=== PATIENT | female | born 1970 | race African-American/Black ===

== ENCOUNTER 2017-02-08 16:52 | Emergency (ER) | payer BC, OTHER ==
[~2017-02-08] VITALS: Ht 160 cm; Wt 76.2 kg
[~2017-02-08 16:52] MED LIST: CYCL-36 PO; ERGO50000 PO; GABA300C3 PO; MOBI15TA PO
[2017-02-08 17:15] VITALS: BP 163/75; PULSE 95; RESP 16; TEMP 98; O2SAT 100
[2017-02-08] MEDS ORDERED: ASPIRIN 81 MG CHEW TAB PO ONE (17:15)
[2017-02-08] MEDS ORDERED: GABA300C5 PO (17:15)
[2017-02-08] MEDS ORDERED: MORPHINE SULFATE 4 MG/ML INJ IV PUSH ONE (17:15)
--- NOTE | 2017-02-08 17:20 | PD ---
HPI Chief Complaint: cp Time Seen by Provider: 17:03 Travel History International Travel<30 days: No Contact w/Intl Traveler<30days: No Traveled to known affect area: No History of Present Illness HPI c/o intermittent episodes started 6days ago of left sided chest pressure, 6/10, described as sharp, nonrad, worse with movement....pt has also noted over last month an increase sob with activity such as going up stairs. denies fever/v/d/ abd pain/gardiner PFSH Past Medical History Heart Rhythm Problems: No Cardiac Catheterization: No Cardiovascular Problems: No High Cholesterol: No Congestive Heart Failure: No Diabetes: Yes (ON DIET 9 YEARS AGO) Diminished Hearing: No Musculoskeletal: Yes (LOWER BACK HURTS) Immunizations Current: Yes : 5 Para: 5 Miscarriage: 0 : 0 Past Surgical History Tonsillectomy: Yes Social History Alcohol Use: No Tobacco Use: No Substance Use: No Allergies-Medications (Allergen,Severity, Reaction): Coded Allergies: acetaminophen (Unverified Allergy, Severe, Hives, 02/08/17) propoxyphene (Unverified Allergy, Severe, Hives, 02/08/17) Reported Meds & Prescriptions Reported Meds & Active Scripts Active Reported Gabapentin 300 Mg Cap 300 Mg PO BID PRN Review of Systems Except as stated in HPI: all other systems reviewed are Neg Cardiovascular: Positive: Chest Pain or Discomfort Physical Exam Narrative GENERAL: SKIN: Warm and dry. HEAD: Atraumatic. Normocephalic. EYES: Pupils equal and round. No scleral icterus. No injection or drainage. ENT: No nasal bleeding or discharge. Mucous membranes pink and moist. NECK: Trachea midline. No JVD. CARDIOVASCULAR: Regular rate and rhythm. RESPIRATORY: No accessory muscle use. Clear to auscultation. Breath sounds equal bilaterally. GASTROINTESTINAL: Abdomen soft, non-tender, nondistended. MUSCULOSKELETAL: Extremities without clubbing, cyanosis, or edema. No obvious deformities. fully reproducible chest wall pain on palpation NEUROLOGICAL: Awake and alert. No obvious cranial nerve deficits. Motor grossly within normal limits. Five out of 5 muscle strength in the arms and legs. Normal speech. PSYCHIATRIC: Appropriate mood and affect; insight and judgment normal. Data Data Last Documented VS Vital Signs Date Time Temp Pulse Resp B/P (MAP) Pulse Ox O2 Delivery O2 Flow Rate FiO2 02/08/17 17:45 100 Room Air 8/25/17 17:15 98.0 95 16 163/75 (104) Orders Orders Electrocardiogram (02/08/17 17:11) Ckmb (Isoenzyme) Profile (02/08/17 17:11) Complete Blood Count With Diff (02/08/17 17:11) Comprehensive Metabolic Panel (02/08/17 17:11) Prothrombin Time / Inr (Pt) (02/08/17 17:11) Act Partial Throm Time (Ptt) (02/08/17 17:11) Troponin I (02/08/17 17:11) Lipase (02/08/17 17:11) Chest, Single Ap (02/08/17 17:11) Ecg Monitoring (02/08/17 17:11) Bilateral Bp Monitoring (02/08/17 17:11) Iv Access Insert/Monitor (02/08/17 17:11) Oximetry (02/08/17 17:11) Oxygen Administration (02/08/17 17:11) Aspirin Chew (Aspirin Chew) (02/08/17 17:15) Morphine Inj (Morphine Inj) (02/08/17 17:15) Ct Pulmonary Angiogram (02/08/17 17:11) Influenzae A/B Antigen (02/08/17 17:11) Ed Urine Pregnancytest Poc (02/08/17 17:11) Iohexol 350 Inj (Omnipaque 350 Inj) (02/08/17 18:40) Labs Laboratory Tests Test 02/08/17 17:30 White Blood Count 6.7 TH/MM3 Red Blood Count 4.07 MIL/MM3 Hemoglobin 11.5 GM/DL Hematocrit 34.1 % Mean Corpuscular Volume 83.8 FL Mean Corpuscular Hemoglobin 28.3 PG Mean Corpuscular Hemoglobin Concent 33.7 % Red Cell Distribution Width 12.1 % Platelet Count 342 TH/MM3 Mean Platelet Volume 8.0 FL Neutrophils (%) (Auto) 64.2 % Lymphocytes (%) (Auto) 24.9 % Monocytes (%) (Auto) 9.7 % Eosinophils (%) (Auto) 0.8 % Basophils (%) (Auto) 0.4 % Neutrophils # (Auto) 4.2 TH/MM3 Lymphocytes # (Auto) 1.7 TH/MM3 Monocytes # (Auto) 0.7 TH/MM3 Eosinophils # (Auto) 0.1 TH/MM3 Basophils # (Auto) 0.0 TH/MM3 CBC Comment DIFF FINAL Differential Comment Prothrombin Time 11.0 SEC Prothromb Time International Ratio 1.0 RATIO Activated Partial Thromboplast Time 27.3 SEC Blood Urea Nitrogen 9 MG/DL Creatinine 0.80 MG/DL Random Glucose 107 MG/DL Total Protein 8.0 GM/DL Albumin 3.5 GM/DL Calcium Level 8.1 MG/DL Alkaline Phosphatase 77 U/L Aspartate Amino Transf (AST/SGOT) 11 U/L Alanine Aminotransferase (ALT/SGPT) 15 U/L Total Bilirubin 0.3 MG/DL Sodium Level 137 MEQ/L Potassium Level 3.3 MEQ/L Chloride Level 103 MEQ/L Carbon Dioxide Level 25.5 MEQ/L Anion Gap 9 MEQ/L Estimat Glomerular Filtration Rate 93 ML/MIN Total Creatine Kinase 63 U/L Troponin I LESS THAN 0.02 NG/ML Lipase 187 U/L [facility] Medical Decision Making Medical Screen Exam Complete: Yes Emergency Medical Condition: Yes Medical Record Reviewed: Yes Interpretation(s) ekg is nsr 64, nl intervals, no stemi patter, j point elevation without lvh Differential Diagnosis atypical cp v mi v nonstemi v pe v pna v ptx v flu Narrative Course neg e/o mi, pe, pna,or ptx...flu neg as well. patient's findings are most likely musculoskeletal in source Diagnosis Primary Impression: Chest wall pain Scripts Naproxen DR (Naproxen EC) 375 Mg Tabdr 375 MG PO BID, #20 TAB 0 Refills Prov: Nikolai Steward MD 02/08/17 Cyclobenzaprine (Flexeril) 10 Mg Tab 10 MG PO TID for Muscle Spasm, #21 TAB 0 Refills Prov: Nikolai Steward MD 02/08/17 Disposition: DISCHARGE HOME Condition: Stable Nikolai Steward MD Feb 08, 2017 17:20
--- NOTE | 2017-02-08 17:31 | RADRPT ---
EXAM DATE/TIME: 02/08/2017 17:15 [facility] COMPARISON: CHEST SINGLE AP, August 13, 2015, 22:56. INDICATIONS : Chest pain. MEDICAL HISTORY : None. SURGICAL HISTORY : None. ENCOUNTER: Initial ACUITY: 4 - 6 days PAIN SCORE: 9/10 LOCATION: Left upper chest FINDINGS: Portable AP view of the chest demonstrates a normal-sized cardiac silhouette. No effusion, consolidat ion, or pneumothorax is visualized. The bones and soft tissues demonstrate no acute abnormality. CONCLUSION: No acute cardiopulmonary abnormality is identified. Bryan Franz MD on February 08, 2017 at 17:29 Board Certified Radiologist. This report was verified electronically.
[2017-02-08 17:44] LABS: AUTOMATED NEUTROPHIL # 4.2 TH/MM3 (1.8-7.7); BASOPHIL % 0.4 % (0.0-2.0); EOSINOPHIL # 0.1 TH/MM3 (0-0.4); EOSINOPHIL % 0.8 % (0.0-4.0); HEMATOCRIT 34.1 % (35.0-46.0); LYMPH % 24.9 % (9.0-44.0); LYMPHOCYTE # 1.7 TH/MM3 (1.0-4.8); MEAN CELL VOLUME 83.8 FL (80.0-100.0); MEAN CORPUSCULAR HEMOGLOBIN 28.3 PG (27.0-34.0); MEAN CORPUSCULAR HGB CONC 33.7 % (32.0-36.0); MONO % 9.7 % (0.0-8.0); NEUT % 64.2 % (16.0-70.0); PLATELET COUNT 342 TH/MM3 (150-450); RED BLOOD COUNT 4.07 MIL/MM3 (4.00-5.30); RED CELL DISTRIBUTION WIDTH 12.1 % (11.6-17.2); WHITE BLOOD COUNT 6.7 TH/MM3 (4.0-11.0)
[2017-02-08 17:45] VITALS: O2SAT 100
[2017-02-08 17:49] LABS: HEMO FLAGS DIFF FINAL
[2017-02-08 17:54] LABS: CHLORIDE 103 MEQ/L (98-107); POTASSIUM 3.3 MEQ/L (3.5-5.1); SODIUM (NA) 137 MEQ/L (136-145)
[2017-02-08 17:58] LABS: ANION GAP 9 MEQ/L (5-15); BICARBONATE 25.5 MEQ/L (21.0-32.0); BLOOD UREA NITROGEN 9 MG/DL (7-18)
[2017-02-08 18:00] LABS: APTT (PATIENT) 27.3 SEC (24.3-30.1)
[2017-02-08 18:01] LABS: ALT (GPT) 15 U/L (10-53); AST (GOT) 11 U/L (15-37); GLOMERULAR FILTRATION RATE 93 ML/MIN (>89)
[2017-02-08 18:02] LABS: TOTAL BILIRUBIN ADULT 0.3 MG/DL (0.2-1.0)
[2017-02-08 18:04] LABS: ALKALINE PHOSPHATASE 77 U/L (45-117)
[2017-02-08 18:30] LABS: CREATINE KINASE 63 U/L (26-192)
[2017-02-08] MEDS ORDERED: IOHEXOL 350 MG/ML 10 ML VIAL (for RAD DIAG) IVCONTRAST ONE (18:40)
--- NOTE | 2017-02-08 18:46 | RADRPT ---
EXAM DATE/TIME: 02/08/2017 18:32 [facility] COMPARISON: No previous studies available for comparison. INDICATIONS : Short of breath and left chest pressure x 6 days. IV CONTRAST: 75 cc Omnipaque 350 (iohexol) IV RADIATION DOSE: 11.06 CTDIvol (mGy) MEDICAL HISTORY : Diabetes mellitus type 2. SURGICAL HISTORY : None. ENCOUNTER: Initial ACUITY: 4 - 6 days PAIN SCALE: 2/10 LOCATION: Left chest TECHNIQUE: Volumetric scanning of the chest was performed using a pulmonary embolism protocol MIP images were re constructed. Using automated exposure control and adjustment of the mA and/or kV according to patien t size, radiation dose was kept as low as reasonably achievable to obtain optimal diagnostic quality images. DICOM format image data is available electronically for review and comparison. Follow-up recommendations for detected pulmonary nodules are based at a minimum on nodule size and pa tient risk factors according to Fleischner Society Guidelines. FINDINGS: PULMONARY ARTERIES: No filling defects are seen in the pulmonary arteries through the segmental level. LUNGS: There is no consolidation or pneumothorax . No concerning pulmonary nodule is visualized. PLEURAE: There is no pleural thickening or pleural effusion. MEDIASTINUM: There is good visualization of the great vessels of the middle mediastinum. No evidence of mediastin al or hilar adenopathy/mass. MUSCULOSKELETAL: Within normal limits for patient age. MISCELLANEOUS: The visualized upper abdominal organs demonstrate no acute abnormality. CONCLUSION: Normal Bryan Soto MD on February 08, 2017 at 18:44 Board Certified Radiologist. This report was verified electronically.
[2017-02-08] MEDS ORDERED: NAPR-239 PO (18:59)
[2017-02-08] MEDS ORDERED: CYCL1TAB29 PO (18:59)
[2017-02-08 19:17] VITALS: BP 170/75
[2017-02-08 19:18] VITALS: BP_SYST 163; BP_SYST 170; BP_DIAS 74; BP_DIAS 75; PULSE 58; RESP 20
--- NOTE | 2017-02-09 18:34 | EKG ---
Date Performed: 02/08/2017 Time Performed: 17:08:19 PTAGE: 46 years EKG: Sinus rhythm NORMAL ECG PREVIOUS TRACING : 08/14/2015 08.10 Compared to prior tracing no significant change DOCTOR: Suman Nick Interpretating Date/Time 02/09/2017 18:32:08
== END 2017-02-08 19:27 | disposition home or self-care (01) ==
LOC: PHED 16:52
DX: R07.89 Other chest pain (principal)
CPT/HCPCS: 71010; 71275; 80053; 82550; 83690; 84484; 84703; 85025; 85610; 85730; 87804; 93005; 96374; 99285; J2270; Q9967

== ENCOUNTER 2017-05-30 20:17 | Observation (INO) | payer SELFPAY ==
[2017-05-30] VITALS (8 sets, daily range): BP systolic 185–205; BP diastolic 83–110; PULSE 73–88; RESP 16–20; TEMP 98.2; O2SAT 98–100
[~2017-05-30] VITALS: Ht 160 cm; Wt 77.0 kg
[~2017-05-30 20:17] MED LIST changes: -CYCL-36 PO; +CYCL10TA PO; -ERGO50000 PO; -GABA300C3 PO; +GABA300C5 PO; -MOBI15TA PO; +NAPR375T4 PO
[2017-05-30] MEDS ORDERED: IOHEXOL 350 MG/ML 10 ML VIAL (for RAD DIAG) IVCONTRAST ONE (20:18)
[2017-05-30] MEDS ORDERED: SODIUM CHLOR 0.9% 1000 ML INJ 1,000 ML IV SCH (20:51)
[2017-05-30] MEDS ORDERED: SODIUM CHLORIDE 0.9% FLUSH 10 ML FLUSH IV FLUSH PRN ×2 (21:00→23:15)
[2017-05-30] MEDS ORDERED: MORPHINE SULFATE 4 MG/ML INJ IV PUSH ONE ×2 (21:00→23:15)
[2017-05-30] MEDS ORDERED: ONDANSETRON HCL 4 MG/2 ML VIAL IVP ONE (21:00)
--- NOTE | 2017-05-30 21:21 | PD ---
HPI Chief Complaint: Pain: Acute or Chronic Time Seen by Provider: 20:47 Travel History International Travel<30 days: No Contact w/Intl Traveler<30days: No Traveled to known affect area: No History of Present Illness HPI 46-year-old female here for evaluation of left upper abdominal pain, left shoulder pain, left neck pain with pain rating on her left arm. She states that the symptoms have been going on for 1 week. She reports that she was seen at [facility] 3 days ago and was told that she has a muscular spasm. She reports history of spinal surgeries in the past. She is also telling me that she has numbness in her left first second and third fingers. No known history of cardiac disease. Chart review shows that she was admitted to the chest pain center of last year and had a myocardial perfusion scan that showed no fixed or reversible defects to suggest ischemia or infarction with normal wall motion and calculated ejection fraction. Patient describes the pain as tightness, constant, severe, worse with movement and palpation. No fevers or chills. No history of abdominal surgeries. PFSH Past Medical History Heart Rhythm Problems: No Cardiac Catheterization: No Cardiovascular Problems: No High Cholesterol: No Congestive Heart Failure: No Diabetes: Yes Patient Takes Glucophage: No Diminished Hearing: No Musculoskeletal: Yes (Chronic neck pain ) Immunizations Current: Yes Tetanus Vaccination: < 5 Years Influenza Vaccination: No ?: Not : 5 Para: 5 Miscarriage: 0 : 0 Past Surgical History Tonsillectomy: Yes Family History Family Myocardial Infarction: Yes (dad) Social History Alcohol Use: No Tobacco Use: No Substance Use: No Allergies-Medications (Allergen,Severity, Reaction): Coded Allergies: acetaminophen (Verified Allergy, Severe, Hives, 05/30/17) propoxyphene (Verified Allergy, Severe, Hives, 05/30/17) Reported Meds & Prescriptions Reported Meds & Active Scripts Active Reported Gabapentin 300 Mg Cap 300 Mg PO BID PRN Review of Systems Except as stated in HPI: all other systems reviewed are Neg Physical Exam Narrative GENERAL: Well-developed, well-nourished, standing at side of stretcher in moderate distress secondary to pain SKIN: Focused skin assessment warm/dry. No rash. HEAD: Atraumatic. Normocephalic. EYES: Pupils equal and round. No scleral icterus. No injection or drainage. ENT: Mucous membranes pink and moist. NECK: Trachea midline. No JVD. CARDIOVASCULAR: Regular rate and rhythm. RESPIRATORY: No accessory muscle use. Clear to auscultation. Breath sounds equal bilaterally. GASTROINTESTINAL: Abdomen soft, nondistended. Moderate diffuse tenderness without peritoneal signs. Normal bowel sounds. No hernias. MUSCULOSKELETAL: Left anterior chest wall, left shoulder, and left lateral neck with moderate diffuse tenderness without masses or obvious deformities. Normal range of motion in all joints and extremities. NEUROLOGICAL: Awake and alert. No obvious cranial nerve deficits. Motor grossly within normal limits. Normal speech. Normal muscle strength and ROM in all 4 extremities. PSYCHIATRIC: Appropriate mood and affect; insight and judgment normal. Data Data Last Documented VS Vital Signs Date Time Temp Pulse Resp B/P (MAP) Pulse Ox O2 Delivery O2 Flow Rate FiO2 05/30/17 22:56 80 16 185/88 (120) 99 Room Air 05/30/17 20:21 98.2 Orders Orders Complete Blood Count With Diff (05/30/17 20:51) Comprehensive Metabolic Panel (05/30/17 20:51) Lipase (05/30/17 20:51) Prothrombin Time / Inr (Pt) (05/30/17 20:51) Act Partial Throm Time (Ptt) (05/30/17 20:51) Iv Access Insert/Monitor (05/30/17 20:51) Ecg Monitoring (05/30/17 20:51) Oximetry (05/30/17 20:51) Morphine Inj (Morphine Inj) (05/30/17 21:00) Ondansetron Inj (Zofran Inj) (05/30/17 21:00) Sodium Chlor 0.9% 1000 Ml Inj (Ns 1000 M (05/30/17 20:51) Sodium Chloride 0.9% Flush (Ns Flush) (05/30/17 21:00) Electrocardiogram (05/30/17 20:51) Chest, Single Ap (05/30/17 ) Ckmb (Isoenzyme) Profile (05/30/17 20:51) Troponin I (05/30/17 20:51) Ct Cerv Spine W/O Contrast (05/30/17 ) Beta Hcg (Quant/Titer) (05/30/17 20:51) CKMB (05/30/17 21:19) CKMB% (05/30/17 21:19) Cta Thor Abd Aorta W Iv C W3d (05/30/17 ) Al-Mag Hy-Si 40-40-4 Mg/Ml Liq (Mag-Al P (05/30/17 22:15) Lidocaine 2% Viscous (Xylocaine 2% Visco (05/30/17 22:15) Hydralazine Inj (Apresoline Inj) (05/30/17 22:15) Iohexol 350 Inj (Omnipaque 350 Inj) (05/30/17 20:18) Morphine Inj (Morphine Inj) (05/30/17 23:15) Labs Laboratory Tests Test 05/30/17 21:19 White Blood Count 6.4 TH/MM3 Red Blood Count 4.28 MIL/MM3 Hemoglobin 11.5 GM/DL Hematocrit 35.9 % Mean Corpuscular Volume 83.8 FL Mean Corpuscular Hemoglobin 26.8 PG Mean Corpuscular Hemoglobin Concent 32.0 % Red Cell Distribution Width 12.6 % Platelet Count 356 TH/MM3 Mean Platelet Volume 8.0 FL Neutrophils (%) (Auto) 50.8 % Lymphocytes (%) (Auto) 36.8 % Monocytes (%) (Auto) 8.7 % Eosinophils (%) (Auto) 3.1 % Basophils (%) (Auto) 0.6 % Neutrophils # (Auto) 3.2 TH/MM3 Lymphocytes # (Auto) 2.4 TH/MM3 Monocytes # (Auto) 0.6 TH/MM3 Eosinophils # (Auto) 0.2 TH/MM3 Basophils # (Auto) 0.0 TH/MM3 CBC Comment DIFF FINAL Differential Comment Prothrombin Time 10.1 SEC Prothromb Time International Ratio 1.0 RATIO Activated Partial Thromboplast Time 25.7 SEC Blood Urea Nitrogen 12 MG/DL Creatinine 0.77 MG/DL Random Glucose 105 MG/DL Total Protein 7.6 GM/DL Albumin 3.4 GM/DL Calcium Level 8.3 MG/DL Alkaline Phosphatase 80 U/L Aspartate Amino Transf (AST/SGOT) 17 U/L Alanine Aminotransferase (ALT/SGPT) 18 U/L Total Bilirubin 0.2 MG/DL Sodium Level 137 MEQ/L Potassium Level 3.7 MEQ/L Chloride Level 105 MEQ/L Carbon Dioxide Level 25.8 MEQ/L Anion Gap 6 MEQ/L Estimat Glomerular Filtration Rate 97 ML/MIN Total Creatine Kinase 179 U/L Creatine Kinase MB 0.8 NG/ML Troponin I LESS THAN 0.02 NG/ML Lipase 174 U/L Human Chorionic Gonadotropin, Quant LESS THAN 1 MIU/ML MDM Medical Decision Making Medical Screen Exam Complete: Yes Emergency Medical Condition: Yes Medical Record Reviewed: Yes Interpretation(s) EKG: Sinus, rate 79, normal axis, normal intervals, no acute ischemic abnormality. Differential Diagnosis Musculoskeletal pain, radiculopathy, ACS, pneumothorax, pericarditis, PE, pneumonia, dissection, gastritis, peptic ulcer disease, pancreatitis, hepatobiliary disease, colitis Narrative Course Initial vital signs show heart rate 87, blood pressure 189/95, pulse ox 99% on room air, oral temp of 98.2F. Repeat blood pressure is 200/90. Patient was given a dose of 10 mg of IV hydralazine with mild improvement in blood pressure to 185/88. Repeat blood pressure about an hour after the hydralazine is 195/95. CBC: WBC 6.4, hemoglobin 11.5, hematocrit 35.9, platelets 356. CMP is unremarkable. Lipase is 175 Cardiac enzymes are negative. Beta hCG is negative. Chest x-ray: No acute disease. CT cervical spine: No acute fracture or spondylolisthesis. Postoperative changes. No significant canal stenosis. CT thoracic and abdominal aorta: Negative exam. Specifically no evidence for aneurysm or dissection. Patient was given a dose of IV morphine with initial improvement in pain, however on reassessment at 11:00 PM she states her pain has returned and is mainly located in her left neck and shoulder and is severe. Her blood pressure at this time is 195/95. I don't believe that this pain is cardiac in nature, however I will give her a dose of aspirin as well as 3 sublingual nitroglycerin to assess for change in pain as well as blood pressure. Given uncontrolled pain as well as uncontrolled hypertension, patient will be admitted for further treatment and evaluation. Chart review shows that the patient has slight elevation in blood pressure when she visits our emergency department however her systolic blood pressure is usually around 170. She is not on any antihypertensives. I do not believe that this is a hypertensive crisis, and believe that her slight increase in her baseline blood pressure is likely secondary to her pain. Case discussed with hospitalist Dr. Bertrand who has agreed to admit the patient to her service for further treatment and evaluation. Diagnosis Primary Impression: Uncontrolled hypertension Additional Impression: Uncontrolled pain Admitting Information Admitting Physician Requests: Dru Villareal,Dario N MD May 30, 2017 21:21
[2017-05-30 21:38] LABS: AUTOMATED NEUTROPHIL # 3.2 TH/MM3 (1.8-7.7); BASOPHIL % 0.6 % (0.0-2.0); EOSINOPHIL # 0.2 TH/MM3 (0-0.4); EOSINOPHIL % 3.1 % (0.0-4.0); HEMATOCRIT 35.9 % (35.0-46.0); HEMO FLAGS DIFF FINAL; LYMPH % 36.8 % (9.0-44.0); LYMPHOCYTE # 2.4 TH/MM3 (1.0-4.8); MEAN CELL VOLUME 83.8 FL (80.0-100.0); MEAN CORPUSCULAR HEMOGLOBIN 26.8 PG (27.0-34.0); MONO % 8.7 % (0.0-8.0); NEUT % 50.8 % (16.0-70.0); PLATELET COUNT 356 TH/MM3 (150-450); RED BLOOD COUNT 4.28 MIL/MM3 (4.00-5.30); RED CELL DISTRIBUTION WIDTH 12.6 % (11.6-17.2); WHITE BLOOD COUNT 6.4 TH/MM3 (4.0-11.0)
--- NOTE | 2017-05-30 21:45 | RADRPT ---
EXAM DATE/TIME: 05/30/2017 21:32 [facility] COMPARISON: No previous studies available for comparison. INDICATIONS : Chest pain since this evening. MEDICAL HISTORY : Diabetes mellitus type 2. SURGICAL HISTORY : Cervical fusion ENCOUNTER: Initial ACUITY: 1 day PAIN SCORE: 7/10 LOCATION: Left chest FINDINGS: A single view of the chest demonstrates the lungs to be symmetrically aerated without evidence of mas s, infiltrate or effusion. The cardiomediastinal contours are unremarkable. Osseous structures are intact. CONCLUSION: No acute disease. Zac Williamson MD on May 30, 2017 at 21:42 Board Certified Radiologist. This report was verified electronically.
[2017-05-30 21:48] LABS: CHLORIDE 105 MEQ/L (98-107); POTASSIUM 3.7 MEQ/L (3.5-5.1); SODIUM (NA) 137 MEQ/L (136-145)
[2017-05-30 21:52] LABS: ANION GAP 6 MEQ/L (5-15); BICARBONATE 25.8 MEQ/L (21.0-32.0); BLOOD UREA NITROGEN 12 MG/DL (7-18)
[2017-05-30 21:54] LABS: APTT (PATIENT) 25.7 SEC (24.3-30.1); PROTHROMBIN TIME - PATIENT 10.1 SEC (9.8-11.6)
[2017-05-30 21:55] LABS: ALT (GPT) 18 U/L (10-53); AST (GOT) 17 U/L (15-37); GLOMERULAR FILTRATION RATE 97 ML/MIN (>89)
[2017-05-30 21:56] LABS: TOTAL BILIRUBIN ADULT 0.2 MG/DL (0.2-1.0)
[2017-05-30 21:58] LABS: ALKALINE PHOSPHATASE 80 U/L (45-117); CREATINE KINASE 179 U/L (26-192)
[2017-05-30 22:00] LABS: BETA HCG QUANT LESS THAN 1 MIU/ML (0-5)
[2017-05-30 22:10] LABS: CKMB 0.8 NG/ML (0.5-3.6)
[2017-05-30] MEDS ORDERED: hydrALAZINE HCL 20 MG/ML VIAL IV PUSH ONE (22:15)
[2017-05-30] MEDS ORDERED: ALUMINUM/MAGNESIUM/SIMETH 30 ML CUP PO ONE (22:15)
[2017-05-30] MEDS ORDERED: LIDOCAINE VISCOUS 2% SOLN 15 ML UDC PO ONE (22:15)
--- NOTE | 2017-05-30 22:43 | RADRPT ---
EXAM DATE/TIME: 05/30/2017 22:12 [facility] COMPARISON: No previous studies available for comparison. INDICATIONS : Chronic neck pain. Worse on left since Saturday. No known injury. RADIATION DOSE: 24.39 CTDIvol (mGy) MEDICAL HISTORY : Diabetes mellitus type 2. SURGICAL HISTORY : Tonsillectomy. Fusion, cervical. ENCOUNTER: Initial ACUITY: 3 days PAIN SCALE: 10/10 LOCATION: Left neck TECHNIQUE: Volumetric scanning of the cervical spine was performed. Multiplanar reconstructions in the sagittal, coronal and oblique axial planes were performed. Using automated exposure control and adjustment o f the mA and/or kV according to patient size, radiation dose was kept as low as reasonably achievable to obtain optimal diagnostic quality images. DICOM format image data is available electronically f or review and comparison. FINDINGS: Postop fusion across C3 and 4 and surgical hardware across the left-sided posterior elements from C3- C6. No acute fracture or significant spondylolisthesis. No central bony canal stenosis. CONCLUSION: 1. No acute fracture or spondylolisthesis. Postoperative changes as above. No significant canal steno sis identified. Zac Williamson MD on May 30, 2017 at 22:38 Board Certified Radiologist. This report was verified electronically.
--- NOTE | 2017-05-30 23:00 | RADRPT ---
EXAM DATE/TIME: 05/30/2017 22:19 [facility] COMPARISON: No previous studies available for comparison. INDICATIONS : Left abdominal and chest pain for 3 days. IV CONTRAST: 90 cc Omnipaque 350 (iohexol) IV RADIATION DOSE: 19.22 CTDIvol (mGy) ; Combined studies - Thorax/Abdomen/Pelvis MEDICAL HISTORY : Diabetes mellitus type 2. SURGICAL HISTORY : Fusion, cervical. Tonsillectomy. ENCOUNTER: Initial ACUITY: 3 days PAIN SCALE: 10/10 LOCATION: Left upper quadrant Patient was premedicated for underlying contrast media allergy. TECHNIQUE: Volumetric scanning was performed using a multi-row detector CT scanner. The data was post processed with a variety of visualization algorithms including full volume maximum intensity projection, multi -planar sliding thin slab reformation, curved planar reformation, and surface rendering techniques. Using automated exposure control and adjustment of the mA and/or kV according to patient size, radiat ion dose was kept as low as reasonably achievable to obtain optimal diagnostic quality images. DICOM format image data is available electronically for review and comparison. FINDINGS: LUNGS: There is no consolidation or pneumothorax. No concerning pulmonary nodule is visualized. No pleural fluid is present. MEDIASTINUM: No abnormally enlarged lymph nodes by CT criteria. No axillary or hilar abnormalities are identified. ABDOMEN: The liver and spleen are free of focal defects. The gallbladder and pancreas demonstrate no abnormali ty. The adrenal glands are normal. The kidneys demonstrate no evidence of solid renal mass or hydrone phrosis. No free fluid or abdominal masses are identified. No para-aortic adenopathy is seen. PELVIS: No evidence of free fluid or pelvic mass. No abnormally enlarged inguinal or retroperitoneal lymph no brionna are present. The bladder is unremarkable. THORACIC AORTA: The thoracic aortic root is normal with normal branching of the great vessels. There is no evidence of aneurysm or dissection. ABDOMINAL AORTA: The aorta is normal in caliber without aneurysm or dissection. The renal arteries are patent bilater ally. The proximal celiac and superior mesenteric arteries are patent and normal in diameter. PELVIC VESSELS: The internal iliac and external iliac vessels are patent without aneurysm or stenosis. CONCLUSION: 1. Negative CTA of the thoracic and abdominal aorta. Specifically no evidence for aneurysm or dissect ion. Zac Williamson MD on May 30, 2017 at 22:55 Board Certified Radiologist. This report was verified electronically.
[2017-05-30] MEDS ORDERED: MAGNESIUM HYDROXIDE SUSP 30 ML CUP PO PRN (23:15)
[2017-05-30] MEDS ORDERED: SENNOSIDES 8.6 MG TAB PO PRN (23:15)
[2017-05-30] MEDS ORDERED: ASPIRIN 81 MG CHEW TAB CHEW ONE (23:15)
[2017-05-30] MEDS ORDERED: NITROGLYCERIN 2% OINT 1 GM PACKET TOPICAL PRN (23:15)
[2017-05-30] MEDS ORDERED: ONDANSETRON HCL 4 MG/2 ML VIAL IVP PRN (23:15)
[2017-05-30] MEDS: NITROGLYCERIN 0.4 MG SL 25 TABS/BTL SL SCH ×3 (23:15→23:25)
[2017-05-30] MEDS ORDERED: LACTULOSE SYRUP 20 GM/30 ML CUP PO PRN (23:15)
[2017-05-30] MEDS ORDERED: BISACODYL 10 MG SUPP RECTAL PRN (23:15)
[2017-05-31 03:36] VITALS: BP 170/88; PULSE 81; RESP 17; TEMP 97.7; O2SAT 96
[2017-05-31] MEDS: HYDROmorphone HCL PF 2 MG/ML VIAL IV PUSH PRN ×3 (03:44→13:22)
[2017-05-31 04:00] VITALS: BP 168/84; PULSE 79; RESP 17; TEMP 97.6; O2SAT 97
[2017-05-31] MEDS ORDERED: diphenhydrAMINE HCL 25 MG CAP PO PRN (04:00)
[2017-05-31 08:00] VITALS: BP 167/77; PULSE 62; RESP 18; TEMP 97; O2SAT 100
[2017-05-31] MEDS ORDERED: PRAVASTATIN SOD 40 MG TAB PO SCH (09:00)
[2017-05-31] MEDS ORDERED: METOPROLOL TARTRATE 25 MG TAB PO SCH (09:00)
[2017-05-31] MEDS ORDERED: ASPIRIN EC 81 MG TABEC PO SCH (09:00)
[2017-05-31] MEDS ORDERED: SODIUM CHLORIDE 0.9% FLUSH 10 ML FLUSH IV FLUSH SCH (09:00)
[2017-05-31] MEDS ORDERED: DOCUSATE SODIUM 50 MG/SENNA 8.6 MG TAB PO SCH (09:00)
[2017-05-31] MEDS ORDERED: amLODIPine BESYLATE 5 MG TAB PO SCH (10:00)
[2017-05-31 10:54] LABS: AUTOMATED NEUTROPHIL # 3.8 TH/MM3 (1.8-7.7); BASOPHIL % 0.3 % (0.0-2.0); EOSINOPHIL # 0.1 TH/MM3 (0-0.4); EOSINOPHIL % 2.2 % (0.0-4.0); HEMATOCRIT 33.8 % (35.0-46.0); LYMPH % 27.3 % (9.0-44.0); LYMPHOCYTE # 1.7 TH/MM3 (1.0-4.8); MEAN CELL VOLUME 84.5 FL (80.0-100.0); MEAN CORPUSCULAR HEMOGLOBIN 27.4 PG (27.0-34.0); MEAN CORPUSCULAR HGB CONC 32.5 % (32.0-36.0); NEUT % 61.2 % (16.0-70.0); PLATELET COUNT 348 TH/MM3 (150-450); RED CELL DISTRIBUTION WIDTH 12.4 % (11.6-17.2); WHITE BLOOD COUNT 6.1 TH/MM3 (4.0-11.0)
[2017-05-31 10:59] LABS: CHLORIDE 106 MEQ/L (98-107); POTASSIUM 3.7 MEQ/L (3.5-5.1); SODIUM (NA) 140 MEQ/L (136-145)
[2017-05-31 11:01] LABS: HEMO FLAGS DIFF FINAL
[2017-05-31 11:02] LABS: ANION GAP 7 MEQ/L (5-15); BLOOD UREA NITROGEN 12 MG/DL (7-18)
[2017-05-31 11:05] LABS: ALT (GPT) 17 U/L (10-53); AST (GOT) 13 U/L (15-37)
[2017-05-31 11:06] LABS: GLOMERULAR FILTRATION RATE 95 ML/MIN (>89)
[2017-05-31 11:07] LABS: TOTAL BILIRUBIN ADULT 0.6 MG/DL (0.2-1.0)
[2017-05-31 11:08] LABS: ALKALINE PHOSPHATASE 77 U/L (45-117)
[2017-05-31 12:00] VITALS: BP 139/67; PULSE 64; RESP 18; TEMP 97.2; O2SAT 99
[2017-05-31] MEDS ORDERED: TYLETAB34 PO (13:28)
--- NOTE | 2017-05-31 13:29 | HHI.DCPOC ---
Discharge Care Plan Diagnosis: (1) Uncontrolled pain Goals to Promote Your Health * To prevent worsening of your condition and complications * To maintain your health at the optimal level Directions to Meet Your Goals Take your medications as prescribed Follow your dietary instruction Follow activity as directed Keep your appointments as scheduled Take your immunizations and boosters as scheduled If your symptoms worsen call your PCP, if no PCP go to Urgent Care Center or Emergency Room Smoking is Dangerous to Your Health. Avoid second hand smoke Call the 24-hour hour crisis hotline for domestic abuse at Mariluz Elizabeth MD May 31, 2017 13:29
--- NOTE | 2017-05-31 13:33 | HHI.HP ---
[facility] Randy Al[facility] M.D. Admission Diagnosis uncontrolled hypertension, uncontrolled pain Diagnoses: Chief Complaint: Back pain Travel History International Travel<30 Days: No Contact w/Intl Traveler <30 Da: No Traveled to Known Affected Are: No History of Present Illness This patient is a 46-year-old female with known history of back and neck pain who is an active follow-up with a neurologist and a pain specialist. The patient has come to the emergency room with significant pain and is resolved her blood pressure was elevated. Patient did receive IV Dilaudid with good improvement. This morning she is dramatically improved and the pain is resolved. The patient's blood pressure is improved as well. Patient will be discharged home Review of Systems Constitutional: DENIES: Diaphoretic episodes, Fatigue, Fever, Weight gain, Weight loss, Chills, Dizziness, Change in appetite, Night Sweats Endocrine: DENIES: Abnorml menstrual pattern, Heat/cold intolerance, Polydipsia , Polyuria, Polyphagia Eyes: DENIES: Blurred vision, Eye pain Ears, nose, mouth, throat: DENIES: Tinnitus, Hearing loss, Vertigo, Nasal discharge, Oral lesions, Throat pain, Hoarseness, Ear Pain, Running Nose, Epistaxis, Sinus Pain, Toothache, Odynophagia Respiratory: DENIES: Apneas, Cough, Snoring, Wheezing, Hemoptysis, Sputum production, Shortness of breath Cardiovascular: DENIES: Chest pain, Palpitations, Syncope, Dyspnea on Exertion , PND, Lower Extremity Edema, Orthopnea, Claudication Gastrointestinal: DENIES: Abdominal pain, Black stools, Bloody stools, Constipation, Diarrhea, Nausea, Vomiting, Difficulty Swallowing, Anorexia Genitourinary: DENIES: Abnormal vaginal bleeding, Dysmenorrhea, Dyspareunia, Sexual dysfunction, Urinary frequency, Urinary incontinence, Urgency, Hematuria , Dysuria, Nocturia, Vaginal discharge Musculoskeletal: COMPLAINS OF: Muscle aches, Back pain, Neck pain, DENIES: Joint pain, Stiffness, Joint Swelling Integumentary: DENIES: Abnormal pigmentation, Pruritus, Rash, Nail changes, Breast masses, Breast skin changes, Nipple discharge Hematologic/lymphatic: DENIES: Bruising, Lymphadenopathy Immunologic/allergic: DENIES: Eczema, Urticaria Neurologic: COMPLAINS OF: Paresthesias, DENIES: Abnormal gait, Headache, Localized weakness, Seizures, Speech Problems, Tremor, Poor Balance Psychiatric: DENIES: Anxiety, Confusion, Mood changes, Depression, Hallucinations, Agitation, Suicidal Ideation, Homicidal Ideation, Delusions Except as stated in HPI: all other systems reviewed are Neg Past Family Social History Past Medical History Chronic back and neck pain Past Surgical History Spinal fusion Neck surgery Reported Medications Reviewed in the EMR Allergies: Coded Allergies: acetaminophen (Verified Allergy, Severe, Hives, 05/30/17) propoxyphene (Verified Allergy, Severe, Hives, 05/30/17) Active Ordered Medications Reviewed in the EMR Family History Mother has thyroid disease and hypertension Father has hypertension and age 72, sister has hypertension Social History No tobacco or alcohol dependency, lives with her spouse Physical Exam Vital Signs Vital Signs Date Time Temp Pulse Resp B/P (MAP) Pulse Ox O2 Delivery O2 Flow Rate FiO2 05/31/17 08:00 97.0 62 18 167/77 (107) 100 05/31/17 04:00 97.6 79 17 168/84 (112) 97 05/31/17 03:36 97.7 81 17 170/88 (115) 96 05/31/17 01:05 80 18 05/31/17 01:05 05/30/17 23:41 81 18 198/88 (124) 98 Room Air 05/30/17 22:56 80 16 185/88 (120) 99 Room Air 05/30/17 22:51 77 18 197/83 (121) 05/30/17 22:46 75 16 205/110 (141) 05/30/17 22:40 73 16 198/91 (126) 100 Room Air 05/30/17 22:00 88 16 200/90 (126) 100 Room Air 05/30/17 20:57 100 Room Air 05/30/17 20:57 64 20 05/30/17 20:21 98.2 87 20 189/95 (126) 99 Physical Exam GENERAL: This is a well-nourished, well-developed patient, in no apparent distress. SKIN: No rashes, ecchymoses or lesions. Cool and dry. HEAD: Atraumatic. Normocephalic. No temporal or scalp tenderness. EYES: Pupils equal round and reactive. Extraocular motions intact. No scleral icterus. No injection or drainage. ENT: Nose without bleeding, purulent drainage or septal hematoma. Throat without erythema, tonsillar hypertrophy or exudate. Uvula midline. Airway patent. NECK: Trachea midline. No JVD or lymphadenopathy. Supple, nontender, no meningeal signs. CARDIOVASCULAR: Regular rate and rhythm without murmurs, gallops, or rubs. RESPIRATORY: Clear to auscultation. Breath sounds equal bilaterally. No wheezes , rales, or rhonchi. GASTROINTESTINAL: Abdomen soft, non-tender, nondistended. No hepato-splenomegaly , or palpable masses. No guarding. MUSCULOSKELETAL: Extremities without clubbing, cyanosis, or edema. No joint tenderness, effusion, or edema noted. No calf tenderness. Negative Homans sign bilaterally. NEUROLOGICAL: Subjective numbness and tingling in the medial left hand and fingers, otherwise Awake and alert. Cranial nerves II through XII intact. Motor and sensory grossly within normal limits. Five out of 5 muscle strength in all muscle groups. Normal speech. Laboratory Laboratory Tests Test 05/30/17 21:19 05/31/17 04:15 05/31/17 10:25 White Blood Count 6.4 6.1 Red Blood Count 4.28 4.00 Hemoglobin 11.5 11.0 Hematocrit 35.9 33.8 Mean Corpuscular Volume 83.8 84.5 Mean Corpuscular Hemoglobin 26.8 27.4 Mean Corpuscular Hemoglobin Concent 32.0 32.5 Red Cell Distribution Width 12.6 12.4 Platelet Count 356 348 Mean Platelet Volume 8.0 7.9 Neutrophils (%) (Auto) 50.8 61.2 Lymphocytes (%) (Auto) 36.8 27.3 Monocytes (%) (Auto) 8.7 9.0 Eosinophils (%) (Auto) 3.1 2.2 Basophils (%) (Auto) 0.6 0.3 Neutrophils # (Auto) 3.2 3.8 Lymphocytes # (Auto) 2.4 1.7 Monocytes # (Auto) 0.6 0.5 Eosinophils # (Auto) 0.2 0.1 Basophils # (Auto) 0.0 0.0 CBC Comment DIFF FINAL DIFF FINAL Differential Comment Prothrombin Time 10.1 Prothromb Time International Ratio 1.0 Activated Partial Thromboplast Time 25.7 Blood Urea Nitrogen 12 12 Creatinine 0.77 0.78 Random Glucose 105 146 Total Protein 7.6 7.4 Albumin 3.4 3.3 Calcium Level 8.3 8.1 Alkaline Phosphatase 80 77 Aspartate Amino Transf (AST/SGOT) 17 13 Alanine Aminotransferase (ALT/SGPT) 18 17 Total Bilirubin 0.2 0.6 Sodium Level 137 140 Potassium Level 3.7 3.7 Chloride Level 105 106 Carbon Dioxide Level 25.8 27.0 Anion Gap 6 7 Estimat Glomerular Filtration Rate 97 95 Total Creatine Kinase 179 Creatine Kinase MB 0.8 Troponin I LESS THAN 0.02 LESS THAN 0.02 LESS THAN 0.02 Lipase 174 Human Chorionic Gonadotropin, Quant LESS THAN 1 Result Diagram: 05/31/17 1025 05/31/17 1025 Mariluz Elizabeth MD May 31, 2017 13:33
[2017-06-01] MEDS ORDERED: PNEUMOCOCCAL POLYVALENT INJ 25 MCG/0.5 ML SYR IM ONE (10:00)
[2017-06-01] MEDS ORDERED: INFLUENZA VIRUS VACCINE (QUADRIVALENT) 0.5 ML SYR IM ONE (10:00)
--- NOTE | 2017-06-01 10:10 | EKG ---
Date Performed: 05/30/2017 Time Performed: 21:01:15 PTAGE: 46 years EKG: Sinus rhythm POSSIBLE LEFT ATRIAL ENLARGEMENT BORDERLINE ECG WARNING: DATA QUALITY MAY AFFECT INTERPRETATION PREVIOUS TRACING : 02/08/2017 17.08 DOCTOR: Emma Beaulieu Interpretating Date/Time 06/01/2017 10:09:40
== END 2017-05-31 14:55 | disposition home or self-care (01) ==
LOC: PHED 20:17 → PHEDA 23:17 → PH3B 05-31 00:55
PROVIDERS: ADMIT Hospitalist; ATTEND Hospitalist
DX: I10 Essential (primary) hypertension (principal); M54.9 Dorsalgia, unspecified; M54.2 Cervicalgia; M79.1 Myalgia; R20.2 Paresthesia of skin; R10.12 Left upper quadrant pain; M25.512 Pain in left shoulder; M79.602 Pain in left arm; R20.0 Anesthesia of skin; R07.9 Chest pain, unspecified; E11.9 Type 2 diabetes mellitus without complications; Z79.899 Other long term (current) drug therapy; Z98.1 Arthrodesis status
CPT/HCPCS: 71010; 71275; 72125; 74174; 80053; 82550; 82552; 83690; 84484; 84702; 85025; 85610; 85730; 93005; 96361; 96374; 96375; 96376; 99285; G0378; J0360; J1170; J2270; J2405; J7030; Q9967